=== PATIENT | female | born 1960 | race Caucasian/White ===

== ENCOUNTER 2018-02-25 09:45 | Outpatient (CLI) | payer OTHER ==
--- NOTE | 2018-02-25 10:40 | ULT ---
THYROID ULTRASOUND: DATE: 02/25/18. COMPAR[place] [facility] [place]ISTORY: Reevaluate thyroid nodule. TECHNIQUE: Multiplanar, brady scale, sonographic imaging of the thyroid gland obtained. FINDINGS: The thyroid parenchyma is markedly heterogeneous. The thyroid isthmus measures 4 mm in AP dimension. The right lobe measures 4.5 x 1.9 x 1.9 cm and the left lobe measures 3.5 x 1.7 x 1.3 cm. On today's examination, as well as on the prior examination, there is extensive nodularity involving both the right and the left lobes with the thyroid parenchyma essentially being replaced with numerou s small nodules. There may be a 9 mm echogenic solid nodule on the mid portion of the right lobe, st able. No significant interval change since the prior exam. IMPRESSION: Stable thyroid ultrasound demonstrating prominent heterogeneity within a thyroid gland which is essen tially replaced with small nodules. No dominant or new nodule is evident. POS: JAS
== END 2018-02-25 09:46 | disposition home or self-care (01) ==
LOC: SCSULT 09:45
PROVIDERS: ATTEND Otolaryngology Plastic Surgery within the Head & Neck
DX: E04.1 Nontoxic single thyroid nodule (principal); R93.8 Abnormal findings on diagnostic imaging of other specified body structures
CPT/HCPCS: 76536

== ENCOUNTER 2024-08-25 16:38 | Outpatient (CLI) | payer BC | END 2024-08-25 16:39 | disposition home or self-care (01) | LOC: RAD 16:38 | PROVIDERS: ATTEND Nurse Practitioner Family | DX: M25.561 Pain in right knee (principal); M17.11 Unilateral primary osteoarthritis, right knee ==

== ENCOUNTER 2025-05-28 12:49 | Outpatient (CLI) | payer BC ==
[2025-05-28 13:25] LABS: Estimated GFR - POC 71.0
== END 2025-05-28 12:50 | disposition home or self-care (01) ==
LOC: MRI 12:49
PROVIDERS: ATTEND Family Medicine
DX: Q27.9 Congenital malformation of peripheral vascular system, unspecified (principal); K76.9 Liver disease, unspecified; D25.9 Leiomyoma of uterus, unspecified; D18.03 Hemangioma of intra-abdominal structures; K44.9 Diaphragmatic hernia without obstruction or gangrene
CPT/HCPCS: 36415; 72197; 74183; 82565